=== PATIENT | female | born 1950 | race Caucasian/White ===

== ENCOUNTER → 2020-01-06 13:14 | Outpatient (CLI) | payer OTHER, MEDICARE, SELFPAY | PROVIDERS: PCP Specialist; Referring Provider Family Medicine; Visit Provider Family Medicine | DX: S31.105A Unspecified open wound of abdominal wall, periumbilic region without penetration into peritoneal cavity, initial encounter (principal) | CPT/HCPCS: 11042; 99203; 99213 ==

== ENCOUNTER → 2020-01-13 10:40 | Outpatient (CLI) | payer OTHER, SELFPAY | PROVIDERS: PCP Specialist; Referring Provider Specialist; Visit Provider Family Medicine | DX: S31.105A Unspecified open wound of abdominal wall, periumbilic region without penetration into peritoneal cavity, initial encounter (principal) | CPT/HCPCS: 97597 ==

== ENCOUNTER → 2020-01-20 10:10 | Outpatient (CLI) | payer OTHER, MEDICARE, SELFPAY | PROVIDERS: PCP Specialist; Referring Provider Specialist; Visit Provider Family Medicine | DX: S31.105A Unspecified open wound of abdominal wall, periumbilic region without penetration into peritoneal cavity, initial encounter (principal); T36.95XA Adverse effect of unspecified systemic antibiotic, initial encounter | CPT/HCPCS: 99213 ==

== ENCOUNTER → 2020-01-27 09:49 | Outpatient (CLI) | payer OTHER, MEDICARE, SELFPAY | PROVIDERS: PCP Specialist; Referring Provider Internal Medicine Infectious Disease; Visit Provider Family Medicine | DX: S31.105A Unspecified open wound of abdominal wall, periumbilic region without penetration into peritoneal cavity, initial encounter (principal); T36.95XA Adverse effect of unspecified systemic antibiotic, initial encounter | CPT/HCPCS: 99213 ==

== ENCOUNTER → 2020-02-03 09:58 | Outpatient (CLI) | payer OTHER, MEDICARE, SELFPAY | PROVIDERS: PCP Specialist; Referring Provider Specialist; Visit Provider Family Medicine | DX: S31.105A Unspecified open wound of abdominal wall, periumbilic region without penetration into peritoneal cavity, initial encounter (principal) | CPT/HCPCS: 99212; 99213 ==

== ENCOUNTER → 2020-02-06 08:23 | Outpatient (CLI) | payer OTHER, SELFPAY ==
--- NOTE | 2020-02-06 | DI.RAD.S_ITS ---
PROCEDURE: FL FISTULA/ABSCESS/SINUS TRACT COMPARISON: [facility], CT, ABDOMEN/PELVIS WITH CONTRAST, 09/12/2011, 10:04. Outside Facility, RG, CT ABDOMEN/PELVIS WITH CONTRAST, 12/24/2019, 14:07. Outside Facility, RG, CT ABDOMEN/PELVIS WITH CONTRAST, 12/30/2019, 11:25. INDICATIONS: Unspecified open wound of abdominal wall, periumbi FINDINGS: An 8 [place] right upper catheter was inserted through the fistula tract in the lower anterior abdominal wall. Isovue 300 was injected through the catheter. Images were obtained during forceful injection of contrast. There is a cavity at the end of the catheter measuring approximately 4.2 x 6.8 cm. There is a narrow tract with subtle contrast opacification and a trace amount of contrast outside of the cavity, suspicious for an enterocutaneous fistula. IMPRESSION: 1. 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 Dictated by: Mcik Rankin M.D. on 02/06/2020 at 9:45 Approved by: Mick Rankin M.D. on 02/06/2020 at 9:57
== END ==
PROVIDERS: PCP Specialist; Referring Provider Family Medicine; Visit Provider Family Medicine
DX: S31.105A Unspecified open wound of abdominal wall, periumbilic region without penetration into peritoneal cavity, initial encounter (principal)
CPT/HCPCS: 76080